=== PATIENT | female | born 2000 | race Caucasian/White ===

== ENCOUNTER 2023-08-26 22:54 | Emergency (ER) | payer OTHER, BC ==
[~2023-08-26] VITALS: Ht 152.4 cm; Wt 63.5 kg
[2023-08-26 23:26] VITALS: BP 125/86; TEMP 98.7
[2023-08-26] MEDS ORDERED: FAMOTIDINE (20 MG) 20 MG TABLET ONE (23:47)
[2023-08-26] MEDS ORDERED: PRED50TA PO (23:47)
[2023-08-26] MEDS ORDERED: predniSONE 20 MG TABLET ONE (23:47)
[2023-08-26] MEDS ORDERED: diphenhydrAMINE HCL 50 MG CAPSULE ONE (23:47)
[2023-08-26] MEDS ORDERED: FAMO-131 PO (23:47)
[2023-08-26 23:52] VITALS: O2SAT 100
[2023-08-27] MEDS ORDERED: predniSONE 10 MG TABLET PO ONE
[2023-08-27] MEDS ORDERED: diphenhydrAMINE HCL 50 MG CAPSULE PO ONE
[2023-08-27] MEDS ORDERED: FAMOTIDINE (20 MG) 20 MG TABLET PO ONE
== END 2023-08-27 00:39 | disposition home or self-care (01) ==
LOC: ER 22:58
DX: L50.9 Urticaria, unspecified (principal); T50.995A Adverse effect of other drugs, medicaments and biological substances, initial encounter; Y92.89 Other specified places as the place of occurrence of the external cause
CPT/HCPCS: 99284; Q0163; J7512 ×2